=== PATIENT | female | born 1990 | race Caucasian/White ===

== ENCOUNTER 2023-11-22 17:00 | Emergency (ER) | payer BC, SELFPAY ==
[2023-11-22 17:12] VITALS: BP 158/96
--- NOTE | 2023-11-22 19:10 | ED.GENMED ---
History of Present Illness
General
Chief Complaint: DVT/Possible Blood Clot
Source: patient
Exam Limitations: none
Time Seen by Provider: 11/22/23 18:02
History of Present Illness
History of Present Illness:
This is a 33 year old female that comes in with c/o pain in the left calf. States that a few days ago she started with pain behind the left knee and in the calf. States that it was better in the morning and then went away. States that this was
Saturday. Saturday she again awoke with pain and by night she was feeling better. Saturday she was ok. the pain come back in the morning and decreased throughout the day. Today the pain was worse. State that she had a little SOB a few days
ago but felt this was her anxiety. State that she was also nauseated. State that she had a headache. Denies any fever, chills, chest pain, abd pain, vomiting, diarrhea, dizziness, urinary burning.
Past History
Past History
ED Past Medical History: Hypercholesterolemia and Other (Patient 'slipped disc' L5 area when she was 17 years old, intermittent back pain since but states it never been this bad. Is post intussusception, PCOS)
ED Past Surgical History: Appendectomy and Tonsilectomy (And adenoids)
Social History
Tobacco: Non-smoker
Alcohol: Occasional
Personal: Single
Living: with family
Family History
Family History: Other (Eye protection, diabetes, cancer)
Review of Systems
Review of Systems
All Other Systems: ROS reviewed and negative except as documented in HPI and ROS
Constitutional: Reports no symptoms; Denies fever or chills
EENT: Reports no symptoms
Respiratory: Reports trouble breathing (few days ago); Denies cough
Cardiac: Reports no symptoms
ABD/GI: Reports nausea; Denies abdominal pain, vomiting or diarrhea
: Reports no symptoms; Denies dysuria, frequency or urgency
Musculoskeletal: Reports other (Left calf and pain behind the left knee)
Skin: Reports no symptoms
Neurological: Reports headache; Denies dizzy
Psychiatric: Reports no symptoms
Phy Exam
General Physical Exam
General Presentation: well appearing and no apparent distress
General age: appears stated age
General Skin: warm and dry
General Habitus: normal
General Mental: alert
General Hydration: appears well hydrated
ENT Exam
ENT Exam: TM's normal, pharynx normal and neck supple
Eye Exam
Eye Exam: EOMI
Cardiovascular Exam
Cardiovascular Exam: regular rate/rhythm, no edema, no murmur and normal peripheral pulses
Pulmonary Exam
Pulmonary Exam: lungs clear, no respiratory distress, no rales, chest non tender, no crackles, no rhonchi, no wheezing and no cough
Musculoskeletal Exam
Musculoskeletal Exam: full ROM, no edema and other (Negative for any redness or swelling)
Skin Exam
Skin Exam: normal color, warm/dry, no rash and no petechia
Psychiatric Exam
Psychiatric Exam: normal mood/affect
Course
Orders/Labs/Results
Orders:
Orders
11/22/23 17:15
US Legs, Left [US Periph Venous LOWER Ext LT] Urgent
Comment:
Reason For Exam: calf/knee pain
Vital Signs
Initial and Last Documented VS:
Initial Vital Signs
Temp Pulse Resp BP Pulse Ox
98.2 F 82 18 158/96 96
11/22/23 17:12 11/22/23 17:12 11/22/23 17:12 11/22/23 17:12 11/22/23 17:12
Last Documented Vital Signs
Temp Pulse Resp BP Pulse Ox
98.2 F 82 18 158/96 96
11/22/23 17:12 11/22/23 17:12 11/22/23 17:12 11/22/23 17:12 11/22/23 17:12
MDM/Problems Addressed
Differential Diagnosis Includes:
DVT, Bakers Cyst
MDM/Problems Addressed:
This is a 33 year old female that comes in with c/o left calf and posterior knee pain
Will get US.
Explained to patient that her US is negative. Will have patient use Tylenol and Ibuprofen and alternate for pain. Follow up with the PCP. Return with any swelling redness or any other concerns.
Chronic conditions affecting care:
NA
Acute Exacerbation and/or Progression of Chronic Illness:
NA
*Radiology
Radiology exam reviewed: radiology read reviewed (US-No evidence of deep Venous thrombosis of the eft lower extremity. )
*Pulse Oximetry
Patient hypoxic: no
*EKG
Interpreted by ED Provider?: NA
Rate: EKG- N/A
*Cook Mayonnaise Interpretation
Rate: Cook Mayonnaise- N/A
*Critical Care Note
Total Time (30-74mins, 75-104mins- exclusive of procedures): Not Applicable
ED Attending Note
-
Portions of this chart may have been created with voice recognition software.� Occasional wrong word or��sound alike� substitutions may have occurred due to the inherent limitations of voice recognition software.
Discharge Plan
Departure
Patient Disposition: Home (Routine Discharge)
Date of Disposition: 11/22/23
Time of Disposition: 19:19
Patient with high blood pressure during this ER visit?: Yes
Condition: Good
Covid-19: Not Applicable
Discharge Problem:
Acute leg pain
Instructions: BLOOD PRESSURE
Prescriptions:
No Action
Control
1 tab PO DAILY
famotidine 20 MG tablet
20 mg PO BID Qty: 20 0RF
oxycodone-acetaminophen 5 MG/325 MG tablet
1 tab PO .Q4-6HPRN PRN (Reason: pain) Qty: 10 0RF
hydrocodone-acetaminophen [Vicodin] 1 EACH tablet
1 tab PO Q6HPRN PRN (Reason: severe pain) Qty: 10 0RF
cyclobenzaprine 10 MG tablet
10 mg PO TIDPRN PRN (Reason: back spasm/muscle tightness.) Qty: 30 0RF
Referrals:
Luz Roman CRNP [Family Provider] - Call in 1-3 days for appt
Activity Restrictions/Additional Instructions:
As discussed, your US is negative for any blood clots or bakers cyst. Please use Ibuprofen 600mg every 6 hours for pain with food and alternate with Tylenol 1000mg every 6 hours for pain. You may also use Warm compress to the leg to help with any
discomfort. Follow up with the family doctor for recheck. IF YOU HAVE ANY OTHER CONCERNS PLEASE RETURN TO THE EMERGENCY ROOM. .
Interventions
Interventions:
*Risk Screen - Suicide Last Done: 11/22/23 17:12
*General Assessment Last Done: 11/22/23 17:12
*Neglect/Abuse Screening Last Done: 11/22/23 17:12
Discharge Date and Time
Print Language: GERMAN
[2023-11-22 19:26] VITALS: BP 118/80
== END 2023-11-22 19:27 | disposition home or self-care (01) ==
LOC: EMR 17:00
PROVIDERS: EMERGENCY PHYSICIAN Emergency Medicine; FAMILY PHYSICIAN Nurse Practitioner
DX: M79.662 Pain in left lower leg (principal); R03.0 Elevated blood-pressure reading, without diagnosis of hypertension
CPT/HCPCS: 99284; 93971

== ENCOUNTER 2025-03-13 20:14 | Emergency (ER) | payer BC, SELFPAY ==
[2025-03-13 20:21] VITALS: BP 126/81
[2025-03-13 21:44] VITALS: BP 122/83
--- NOTE | 2025-03-13 23:43 | ED.SKININJ ---
HPI-Injury
<Buck Langley MD, Resident - Last Filed: 03/14/25 00:47>
General
Chief Complaint: Bite
Source: patient and family
Exam Limitations: none
Time Seen by Provider: 03/13/25 23:26
History of Present Illness-Injury
Is this injury a work related problem?: No
Initial Injury comments:
Patient is a 34-year-old female who presents today because she said that she noticed a bite jordon on the on the lateral side of her left lower extremity. She noticed the bite jordon today at 4 PM and she does not know when she received the bite, but
she assumes that it was yesterday, yesterday she was on a hay ride with her friend at a local farm. While on the farm she states that she had no exposure to any sort of animal. No pain/itching/discharge from the affected area. No fever, chills,
nausea, vomiting, diarrhea, abdominal pain, cough, acute mental status changes. 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 Her last tetanus she believes was in June. She has 4 pets all Pomeranian's and vaccinated.
ED Provider Triage
<Buck Langley MD, Resident - Last Filed: 03/14/25 00:47>
-
Patient seen by provider in Triage?: Seen in Triage
Past History
<Buck Langley MD, Resident - Last Filed: 03/14/25 00:47>
Past History
ED Past Medical History: Hypercholesterolemia and Other (Patient 'slipped disc' L5 area when she was 17 years old, intermittent back pain since but states it never been this bad. Is post intussusception, PCOS)
ED Past Surgical History: Appendectomy and Tonsilectomy (And adenoids)
Social History
Tobacco: Non-smoker
Alcohol: Occasional
Personal: Single
Living: with family
Family History
Family History: Other (Eye protection, diabetes, cancer)
Review of Systems
<Buck Langley MD, Resident - Last Filed: 03/14/25 00:47>
Review of Systems
All Other Systems: ROS reviewed and negative except as documented in HPI and ROS
Skin Exam
<Buck Langley MD, Resident - Last Filed: 03/14/25 00:47>
Bite
Left Lower Anterior Lateral Proximal Leg:
Type: insect/spider
Skin has: puncture wounds
Surrounding area around bite has: area of erythema/swelling
Distal skin color and temperature: normal-warm & good color
Normal distal neurovascular exam: Yes
Phy Exam
<Buck Langley MD, Resident - Last Filed: 03/14/25 00:47>
General Physical Exam
General Presentation: well appearing and no apparent distress
General Skin: warm
General Habitus: normal
General Mental: alert
Cardiovascular Exam
Cardiovascular Exam: regular rate/rhythm and no edema
Pulmonary Exam
Pulmonary Exam: lungs clear and no respiratory distress
Gastrointestinal Exam
Gastrointestinal Exam: normal bowel sounds, non tender, soft and non distended
Neurological Exam
Neurological Exam: alert and oriented x3
Musculoskeletal Exam
Musculoskeletal Exam: full ROM
Skin Exam
Skin Exam: normal color, warm/dry and other (there are 2 small superfiscial punctate verduzco, with a surrounding area of erythema, without tenderness/ drainage/ swelling/ warmth)
Course
<Buck Langley MD, Resident - Last Filed: 03/14/25 00:47>
Orders/Labs/Results
Orders:
Orders
03/14/25 00:45
Rabies Immune Globulin/Pf [HyperRAB] 1,414 unit IM NOW STA
Rabies Vaccine (Pcec)/Pf [Rabavert Rabies Vacc W-Diluent] 2.5 unit IM .ONCE ONE
Vital Signs
Initial and Last Documented VS:
Initial Vital Signs
Temp Pulse Resp BP Pulse Ox
98.1 F 78 16 126/81 99
03/13/25 20:21 03/13/25 20:21 03/13/25 20:21 03/13/25 20:21 03/13/25 20:21
Last Documented Vital Signs
Temp Pulse Resp BP Pulse Ox
98.1 F 78 16 122/83 99
03/13/25 20:21 03/13/25 20:21 03/13/25 20:21 03/13/25 21:44 03/13/25 23:54
<Milad Salinas DO - Last Filed: 03/14/25 00:48>
Orders/Labs/Results
Orders:
Orders
03/14/25 00:45
Rabies Immune Globulin/Pf [HyperRAB] 1,414 unit IM NOW STA
Rabies Vaccine (Pcec)/Pf [Rabavert Rabies Vacc W-Diluent] 2.5 unit IM .ONCE ONE
Vital Signs
Initial and Last Documented VS:
Initial Vital Signs
Temp Pulse Resp BP Pulse Ox
98.1 F 78 16 126/81 99
03/13/25 20:21 03/13/25 20:21 03/13/25 20:21 03/13/25 20:21 03/13/25 20:21
Last Documented Vital Signs
Temp Pulse Resp BP Pulse Ox
98.1 F 78 16 122/83 99
03/13/25 20:21 03/13/25 20:21 03/13/25 20:21 03/13/25 21:44 03/13/25 23:54
<Buck Langley MD, Resident - Last Filed: 03/14/25 00:47>
MDM/Problems Addressed
Differential Diagnosis Includes:
insect bite, contact dermatitis, allergic reaction, tick bite, cellulitis
MDM/Problems Addressed:
- vitals are normal pt is afebrile
- Patient states that she wants the rabies vaccine after confirming multiple times, will order both the Rabies immunoglobulin and the rabies vaccine
Will discharge patient home after rabies immunoglobulin and vaccine day 0 administration. Asked patient to follow the dosing schedule for the rabies vaccine and to follow up with PCP in 5 days.
<Buck Langley MD, Resident - Last Filed: 03/14/25 00:47>
*Pulse Oximetry
SaO2: 99
Oxygen Mode of Delivery: Room air
Patient hypoxic: no
*Critical Care Note
Total Time (30-74mins, 75-104mins- exclusive of procedures): Not Applicable
ED Attending Note
<Buck Langley MD, Resident - Last Filed: 03/14/25 00:47>
-
Portions of this chart may have been created with voice recognition software.� Occasional wrong word or��sound alike� substitutions may have occurred due to the inherent limitations of voice recognition software.
<Milad Salinas, - Last Filed: 03/14/25 00:48>
ED Attending Note
Patient seen and examined by attending physician: Yes
I performed a history and physical exam of patient and discussed management with resident, I reviewed resident's note and agree with documented findings and plan of care.: Yes
ED Attending Note:
Note:
CHIEF COMPLAINT(S)
Suspected insect or animal bite on the leg.
HISTORY OF PRESENT ILLNESS
The patient is a 34-year-old female who presents with a suspected bite on her leg, first noticed around 4 PM today while taking a shower. She does not recall the exact time or manner of the bite, but suspects it may have occurred during the previous
evening when she was outside for an extended period at a farm for a haunted hayride. The patient mentions wearing tight pants during this time. She expresses concern about the possibility of a bat or spider bite due to the appearance and the
circumstances but does not recall seeing a spider or other creature.
She considered the possibility of a bat bite, prompting a discussion on rabies exposure. The patient has expressed a desire to proceed with rabies prophylaxis for peace of mind, although it was mentioned that a rabies exposure is unlikely without
evidence of a bat in her environment. Despite this, she absolutely wants rabies prophylaxis. The plan involves starting the rabies vaccine series, which requires multiple visits spread over a period of weeks for completion.
SOCIAL HISTORY
The patient notes recent outdoor activity and potential exposure at a farm.
PLAN
1. Initiate rabies vaccination series regarding potential exposure.
2. Schedule follow-up appointments for doses on day 3, day 7, and day 14.
3. The patient advised to monitor the bite site for any signs of infection or changes in symptoms.
DIFFERENTIAL DIAGNOSIS
The Differential Diagnosis includes, in no particular order and is not limited to:
1. Insect bite
2. Spider bite
3. Localized allergic reaction
4. Skin abscess
5. Dermatological reaction from contact exposure
6. Flea bites
7. Tick bite
8. Cellulitis
9. Bat bite (for exclusion given the conversation)
10. Drug eruption
Discharge Plan
Departure
Patient Disposition: Home (Routine Discharge)
Date of Disposition: 03/14/25
Time of Disposition: 00:33
Patient with high blood pressure during this ER visit?: No
Condition: Fair
Discharge Problem:
Rabies vaccine administered, Bite
Instructions: Animal Bites (DC), Rabies, Wound Care (DC)
Prescriptions:
No Action
Control
1 tab PO DAILY
famotidine 20 MG tablet
20 mg PO BID Qty: 20 0RF
oxycodone-acetaminophen 5 MG/325 MG tablet
1 tab PO .Q4-6HPRN PRN (Reason: pain) Qty: 10 0RF
hydrocodone-acetaminophen [Vicodin] 1 EACH tablet
1 tab PO Q6HPRN PRN (Reason: severe pain) Qty: 10 0RF
cyclobenzaprine 10 MG tablet
10 mg PO TIDPRN PRN (Reason: back spasm/muscle tightness.) Qty: 30 0RF
Referrals:
Brock Nicholson CRNP [Family Provider]
Stand Alone Forms: Rabies Vaccine Post Exp Dosing
Activity Restrictions/Additional Instructions:
You were seen for evaluation today of a bite from unknown source. Please follow the dosing schedule for rabies vaccine post exposure dosing. Please follow up with PCP in 5 days.
Thank you for visiting the Emergency Department at [facility].
1. Please schedule a follow up appointment as directed. Call first thing tomorrow morning to make an appointment.
2. If indicated, please take your medications as instructed and indicated on discharge paperwork.
3. If any of your symptoms do not improve, or persist, or become more severe within 6-12 hours, please return to the emergency department for further care.
4. Please return to the emergency department if you develop a headache, neck pain/stiffness, fever greater than 100.4F, chest pain, shortness of breath, persistent nausea, vomiting, slurred speech, difficulty walking, numbness/tingling, weakness,
signs of infection or any other symptoms that are worrisome to you.
Please call [phone] if you have any questions.
Interventions
Interventions:
*Risk Screen - Suicide Last Done: 03/13/25 20:21
*General Assessment Last Done: 03/13/25 21:45
*Neglect/Abuse Screening Last Done: 03/13/25 20:21
*ED- Fall Risk Assessment Last Done: 03/13/25 21:45
*ED COVID-19 Vaccine History Last Done: 03/13/25 21:45
*ED Influenza Vaccine History Last Done: 03/13/25 21:45
ED-Skin Assessment Last Done: 03/13/25 21:45
Discharge Date and Time
Print Language: FAROESE
[2025-03-14] MEDS: RABAVERT RABIES VACC W-DILUENT 2.5 UNIT IM (01:31)
[2025-03-14 01:43] VITALS: BP 129/85
--- NOTE | 2025-03-14 07:50 | ED.SKININJ ---
HPI-Injury
General
Chief Complaint: Bite
Time Seen by Provider: 03/13/25 23:26
Past History
Past History
ED Past Medical History: Hypercholesterolemia and Other (Patient 'slipped disc' L5 area when she was 17 years old, intermittent back pain since but states it never been this bad. Is post intussusception, PCOS)
ED Past Surgical History: Appendectomy and Tonsilectomy (And adenoids)
Social History
Tobacco: Non-smoker
Alcohol: Occasional
Personal: Single
Living: with family
Family History
Family History: Other (Eye protection, diabetes, cancer)
Course
Orders/Labs/Results
Orders:
Orders
03/14/25 00:45
Rabies Immune Globulin/Pf [HyperRAB] 1,414 unit IM NOW STA
Rabies Vaccine (Pcec)/Pf [Rabavert Rabies Vacc W-Diluent] 2.5 unit IM .ONCE ONE
Vital Signs
Initial and Last Documented VS:
Initial Vital Signs
Temp Pulse Resp BP Pulse Ox
98.1 F 78 16 126/81 99
03/13/25 20:21 03/13/25 20:21 03/13/25 20:21 03/13/25 20:21 03/13/25 20:21
Last Documented Vital Signs
Temp Pulse Resp BP Pulse Ox
98.1 F 92 16 129/85 98
03/13/25 20:21 03/14/25 01:43 03/14/25 01:43 03/14/25 01:43 03/14/25 01:43
*Pulse Oximetry
SaO2: 98
Oxygen Mode of Delivery: Room air
ED Attending Note
ED Attending Note
Patient seen and examined by attending physician: Yes
-
Portions of this chart may have been created with voice recognition software.� Occasional wrong word or��sound alike� substitutions may have occurred due to the inherent limitations of voice recognition software.
Discharge Plan
Departure
Patient Disposition: Home (Routine Discharge)
Date of Disposition: 03/14/25
Time of Disposition: 00:33
Patient with high blood pressure during this ER visit?: No
Condition: Fair
Discharge Problem:
Rabies vaccine administered, Bite
Instructions: Animal Bites (DC), Wound Care (DC), Rabies
Prescriptions:
No Action
Control
1 tab PO DAILY
famotidine 20 MG tablet
20 mg PO BID Qty: 20 0RF
oxycodone-acetaminophen 5 MG/325 MG tablet
1 tab PO .Q4-6HPRN PRN (Reason: pain) Qty: 10 0RF
hydrocodone-acetaminophen [Vicodin] 1 EACH tablet
1 tab PO Q6HPRN PRN (Reason: severe pain) Qty: 10 0RF
cyclobenzaprine 10 MG tablet
10 mg PO TIDPRN PRN (Reason: back spasm/muscle tightness.) Qty: 30 0RF
Referrals:
Brock Nicholson CRNP [Family Provider]
Stand Alone Forms: Rabies Vaccine Post Exp Dosing
Activity Restrictions/Additional Instructions:
You were seen for evaluation today of a bite from unknown source. Please follow the dosing schedule for rabies vaccine post exposure dosing. Please follow up with PCP in 5 days.
Thank you for visiting the Emergency Department at [facility].
1. Please schedule a follow up appointment as directed. Call first thing tomorrow morning to make an appointment.
2. If indicated, please take your medications as instructed and indicated on discharge paperwork.
3. If any of your symptoms do not improve, or persist, or become more severe within 6-12 hours, please return to the emergency department for further care.
4. Please return to the emergency department if you develop a headache, neck pain/stiffness, fever greater than 100.4F, chest pain, shortness of breath, persistent nausea, vomiting, slurred speech, difficulty walking, numbness/tingling, weakness,
signs of infection or any other symptoms that are worrisome to you.
Please call [phone] if you have any questions.
Interventions
Interventions:
*Risk Screen - Suicide Last Done: 03/13/25 20:21
*General Assessment Last Done: 03/13/25 21:45
*Neglect/Abuse Screening Last Done: 03/13/25 20:21
*ED- Fall Risk Assessment Last Done: 03/13/25 21:45
*ED COVID-19 Vaccine History Last Done: 03/13/25 21:45
*ED Influenza Vaccine History Last Done: 03/13/25 21:45
*Nursing Disposition Last Done: 03/14/25 01:43
ED-Skin Assessment Last Done: 03/13/25 21:45
Discharge Date and Time
Discharge Date/Time: 03/14/25 01:44
Print Language: LEBANESE
== END 2025-03-14 01:44 | disposition home or self-care (01) ==
LOC: EMR 20:14
PROVIDERS: EMERGENCY PHYSICIAN Student in an Organized Health Care Education/Training Program
DX: S80.862A Insect bite (nonvenomous), left lower leg, initial encounter (principal); Z20.3 Contact with and (suspected) exposure to rabies; Z23 Encounter for immunization; Z29.14 Encounter for prophylactic rabies immune globulin; E78.00 Pure hypercholesterolemia, unspecified; E28.2 Polycystic ovarian syndrome; W57.XXXA Bitten or stung by nonvenomous insect and other nonvenomous arthropods, initial encounter; Y92.79 Other farm location as the place of occurrence of the external cause
CPT/HCPCS: 99282; 90471; 96372; 90375; 90675

== ENCOUNTER 2025-03-30 15:26 | Outpatient (RCR) | payer BC, SELFPAY ==
[2025-03-16 15:20] VITALS: BP 121/76
[2025-03-16] MEDS: RABAVERT RABIES VACC W-DILUENT 2.5 UNIT IM (15:32)
[2025-03-19 10:58] VITALS: BP 114/76
[2025-03-19] MEDS: RABAVERT RABIES VACC W-DILUENT 2.5 UNIT IM (11:06)
[2025-03-23 15:15] VITALS: BP 126/70
[2025-03-23] MEDS: RABAVERT RABIES VACC W-DILUENT 2.5 UNIT IM (15:29)
[2025-03-30 15:34] VITALS: BP 119/76
[2025-03-30] MEDS: RABAVERT RABIES VACC W-DILUENT 2.5 UNIT IM (15:43)
== END 2025-04-02 23:59 | disposition home or self-care (01) ==
LOC: OID 15:26
PROVIDERS: FAMILY PHYSICIAN Student in an Organized Health Care Education/Training Program
DX: Z20.3 Contact with and (suspected) exposure to rabies (principal); Z23 Encounter for immunization
CPT/HCPCS: 90471; 90675